=== PATIENT | male | born 1935 | race Caucasian/White ===

== ENCOUNTER → 2024-05-08 08:48 | Outpatient (CLI) | payer OTHER, SELFPAY | LOC: RESP 08:49 | PROVIDERS: Referring Provider Nurse Practitioner Family; Visit Provider Nurse Practitioner Family | DX: R05.3 Chronic cough (principal); R94.2 Abnormal results of pulmonary function studies; J98.8 Other specified respiratory disorders | CPT/HCPCS: 94060; 94726; 94729 ==